=== PATIENT | male | born 1950 | race African-American/Black ===

== ENCOUNTER → 2016-07-05 | Outpatient (CLI) | payer OTHER ==
[~2016-07-05] MED LIST: ACETAMINOPHEN325 M1 PO; AMIODARONE HCL200 MG PO; BACLOFEN10 MG PO; FULL SPECTRUM0.8 MG PO; HEPARIN SO5000 UNITS SC; LISINOPRIL20 MG PO; LOPRESSOR100 M1 PO; METOPROLOL TART25 MG PO; NEPHRO-VITE,1 TABLET PO; NORVASC10 MG PO; ORAZINC220 MG PO; RENAGEL800 MG PO; SANTYL30 GM TP; SENEXON-S TABL1 EACH PO; SILVADENE20 GM TP; VANCOMYCIN HCL1 GM IV; VITAMIN C500 M1 PO; ZESTRIL40 MG PO; ZOLOFT50 MG PO; ZOSYN 2.25 GR2.25 GM IV
== END | disposition home or self-care (01) ==
LOC: AMB 11:30
PROC: 02PYX3Z Removal of Infusion Device from Great Vessel, External Approach (ICD-10-PCS; principal; 2016-07-05)
DX: Z49.01 Encounter for fitting and adjustment of extracorporeal dialysis catheter (principal); N18.6 End stage renal disease; Z99.2 Dependence on renal dialysis

== ENCOUNTER 2016-07-21 19:42 | Inpatient (IN) | payer OTHER ==
[~2016-07-21] VITALS: Ht 182.9 cm; Wt 65.7 kg
[~2016-07-21 19:42] MED LIST changes: +ACETAMINOPHEN325 M1 GT; -ACETAMINOPHEN325 M1 PO; +AMIODARONE HCL200 MG GT; -AMIODARONE HCL200 MG PO; +BACLOFEN10 MG GT; -BACLOFEN10 MG PO; +LOPRESSOR100 M1 GT; -LOPRESSOR100 M1 PO; +NORVASC10 MG GT; -NORVASC10 MG PO; +ORAZINC220 MG GT; -ORAZINC220 MG PO; +RENAGEL800 MG GT; -RENAGEL800 MG PO; +SENEXON-S TABL1 EACH GT; -SENEXON-S TABL1 EACH PO; +VITAMIN C500 M1 GT; -VITAMIN C500 M1 PO; +ZOLOFT50 MG GT; -ZOLOFT50 MG PO
[2016-07-21 20:17] LABS: HEMATOCRIT 36.7 % (38.0-50.0); MCH 23.2 PG (29.0-34.0); MCV 77.4 FL (86-99); MEAN PLAT.VOLUME 9.3 uM^3 (9.0-12.4); PLATELET COUNT 407 K/uL (156-360); RBC DIS.WIDTH-CV 21.7 % (11.8-14.6); RBC DIS.WIDTH-SD 58.1 % (39-53); RED BLOOD COUNT 4.74 M/uL (4.00-5.50); WHITE BLOOD COUNT 11.7 K/uL (4.1-10.2)
[2016-07-21 20:33] LABS: CHLORIDE 96 mEq/L (99-109); POTASSIUM 4.5 mEq/L (3.7-5.4); SODIUM 135 mEq/L (136-147)
[2016-07-21 20:35] LABS: GLUCOSE 108 mg/dL (70-99)
[2016-07-21 20:36] LABS: ANION GAP 13 MEQ/L (2-14)
[2016-07-21 20:39] LABS: GFR ESTIMATE (CALCULATED) 16 mL/min/
[2016-07-21 20:42] LABS: UREA NITROGEN (BUN) 102 mg/dL (9-23)
[2016-07-21 20:58] LABS: BASE EXCESS 2.8 mEq/L (-3 to +3); BICARBONATE 25.7 mEq/L (22-26); CARBOXY HGB 2.5 % (0-5); COMMENTS - BLOOD GASES C+NA; DEVICE ROOM AIR; FI02 21 %; METHEMOGLOBIN 1.2 % (0-1.5); PCO2 33 mm Hg (35-45); PO2 83 mm Hg (80-100); SITE RR; TOTAL RESP RATE 28 resp/min
[2016-07-21 21:02] LABS: TOTAL BILIRUBIN 0.6 mg/dL (0.0-1.0)
[2016-07-21 21:03] LABS: ALKALINE PHOSPHATASE 221 IU/L (3-129)
[2016-07-21 21:06] LABS: DIRECT BILIRUBIN 0.2 mg/dL (0.0-0.3)
[2016-07-21 22:06] LABS: TROP-I INTERPRETATION NEGATIVE; TROPONIN-I 0.12 ng/mL (0.0-0.30)
[2016-07-21] MEDS ORDERED: SODIUM CHLORIDE1 G1 GT (23:09)
[2016-07-21] MEDS ORDERED: OXYCODONE-ACET1 EACH GT (23:11)
[2016-07-21] MEDS ORDERED: NEPHRO-VITE,1 TABLET GT (23:18)
[2016-07-21] MEDS ORDERED: CENTANY30 GM TP (23:22)
[2016-07-22 07:51] LABS: TROP-I INTERPRETATION NEGATIVE; TROPONIN-I 0.19 ng/mL (0.0-0.30)
[2016-07-22 10:52] LABS: ANION GAP 12 MEQ/L (2-14); CHLORIDE 96 MEQ/L (99-109); POTASSIUM 4.9 MEQ/L (3.7-5.4); SAMPLE HEMOLYSIS CHECK 0; SAMPLE ICTERIC CHECK 0; SAMPLE LIPEMIA CHECK 0; SODIUM 132 MEQ/L (136-147); TOTAL BILIRUBIN 0.6 MG/DL (0.0-1.0)
[2016-07-22 10:55] LABS: HEMATOCRIT 36.3 % (38.0-50.0); MCHC 30.9 G/DL (30.0-36.0); MCV 77.7 FL (86-99); MEAN PLAT.VOLUME 10.2 uM^3 (9.0-12.4); PLATELET COUNT 478 K/uL (156-360); RBC DIS.WIDTH-CV 21.1 % (11.8-14.6); RBC DIS.WIDTH-SD 59.1 % (39-53); RED BLOOD COUNT 4.67 M/uL (4.00-5.50); WHITE BLOOD COUNT 12.3 K/uL (4.1-10.2)
[2016-07-22 11:09] LABS: ALKALINE PHOSPHATASE 166 IU/L (3-129); GFR ESTIMATE (CALCULATED) 15 mL/min/; GLUCOSE 101 mg/dL (70-99)
[2016-07-22 11:11] LABS: UREA NITROGEN (BUN) 107 mg/dL (9-23)
[2016-07-22 11:23] LABS: HBSG INDEX 0.21
[2016-07-22 11:24] LABS: AHBS INDEX 2.24; HEPATITIS B SURFACE ANTIBODY Nonreactive
[2016-07-22 11:39] LABS: EOSINOPHIL COUNT 0.1 K/uL (0-0.3); IMMATURE GRANULOCYTE (%) 0.3 % (0.0-0.7); LYMPHOCYTE COUNT 1.8 K/uL (1.0-2.8); MONOCYTE (%) 8.7 % (3-12); MONOCYTE COUNT 1.1 K/uL (0-0.8); NEUTROPHIL (%) 75.3 % (45-76); NEUTROPHIL COUNT 9.3 K/uL (1.8-6.4)
[2016-07-22 12:59] LABS: TROP-I INTERPRETATION NEGATIVE; TROPONIN-I 0.19 ng/mL (0.0-0.30)
[2016-07-22 16:32] VITALS: BP 147/58
[2016-07-22 19:30] VITALS: BP 127/58
[2016-07-22 23:28] VITALS: BP 118/54
[2016-07-23 04:33] VITALS: BP 122/53
[2016-07-23 06:59] LABS: ANION GAP 18 MEQ/L (2-14); CHLORIDE 97 MEQ/L (99-109); POTASSIUM 4.8 MEQ/L (3.7-5.4); SAMPLE HEMOLYSIS CHECK 0; SAMPLE ICTERIC CHECK 0; SAMPLE LIPEMIA CHECK 0; SODIUM 138 MEQ/L (136-147)
[2016-07-23 07:05] LABS: GFR ESTIMATE (CALCULATED) 24 mL/min/; GLUCOSE 78 mg/dL (70-99); UREA NITROGEN (BUN) 56 mg/dL (9-23)
[2016-07-23 07:29] LABS: HEMATOCRIT 39.6 % (38.0-50.0); MCH 24.1 PG (29.0-34.0); MCHC 30.6 G/DL (30.0-36.0); MCV 78.7 FL (86-99); MEAN PLAT.VOLUME 9.9 uM^3 (9.0-12.4); PLATELET COUNT 382 K/uL (156-360); RBC DIS.WIDTH-CV 21.9 % (11.8-14.6); RBC DIS.WIDTH-SD 62.1 % (39-53); RED BLOOD COUNT 5.03 M/uL (4.00-5.50)
[2016-07-23 08:32] VITALS: BP 114/57
[2016-07-23 13:16] LABS: C DIFF TOXIN NEGATIVE (NEGATIVE)
[2016-07-23 13:17] LABS: PROBE CHECK PASS; SPECIMEN PROCESSING CONTROL PASS
[2016-07-23 16:00] VITALS: BP 114/51
[2016-07-23 20:01] VITALS: BP 109/50
[2016-07-23 23:18] VITALS: BP 114/57
[2016-07-24 03:23] VITALS: BP 114/53
[2016-07-24 07:33] VITALS: BP 123/58
[2016-07-24 07:34] LABS: HEMATOCRIT 35.9 % (38.0-50.0); MCH 24.4 PG (29.0-34.0); MCHC 31.8 G/DL (30.0-36.0); MCV 76.9 FL (86-99); RBC DIS.WIDTH-CV 21.1 % (11.8-14.6); RBC DIS.WIDTH-SD 58.8 % (39-53); RED BLOOD COUNT 4.67 M/uL (4.00-5.50); WHITE BLOOD COUNT 10.4 K/uL (4.1-10.2)
[2016-07-24 07:48] LABS: POTASSIUM ND MEQ/L (3.7-5.4)
[2016-07-24 07:49] LABS: ALKALINE PHOSPHATASE 164 IU/L (3-129); ANION GAP 16 MEQ/L (2-14); CHLORIDE 98 MEQ/L (99-109); GFR ESTIMATE (CALCULATED) 17 mL/min/; SAMPLE HEMOLYSIS CHECK 1; SAMPLE ICTERIC CHECK 0; SAMPLE LIPEMIA CHECK 0; SODIUM 137 MEQ/L (136-147); TOTAL BILIRUBIN 0.5 MG/DL (0.0-1.0); UREA NITROGEN (BUN) 84 mg/dL (9-23)
[2016-07-24 07:56] LABS: GLUCOSE 119 mg/dL (70-99)
[2016-07-24 08:51] LABS: EOSINOPHIL (%) 1.7 % (0-5); EOSINOPHIL COUNT 0.2 K/uL (0-0.3); HEMATOLOGY COMMENT 1 SMEAR COMPATIBLE; IMMATURE GRANULOCYTE (%) 0.4 % (0.0-0.7); LYMPHOCYTE COUNT 1.9 K/uL (1.0-2.8); MONOCYTE (%) 11.5 % (3-12); MONOCYTE COUNT 1.2 K/uL (0-0.8); NEUTROPHIL (%) 67.6 % (45-76); PLAT.SUFFICIENCY ADEQUATE; PLATELET COUNT 348 K/uL (156-360); USER ID CCL
[2016-07-24 11:28] LABS: NO-CHARGE AST (GOT) 38 IU/L (15-37)
[2016-07-24 12:28] VITALS: BP 123/54
[2016-07-24 17:27] VITALS: BP 119/51
[2016-07-24 19:29] LABS: METH RESISTANT S AUREUS PCR POSITIVE (NEGATIVE)
[2016-07-24 19:33] LABS: PROBE CHECK PASS
[2016-07-24 22:29] LABS: INTERNAL CONTROL VALID? YES
[2016-07-24 22:53] VITALS: BP 134/60
[2016-07-25 08:00] VITALS: BP 162/72
[2016-07-25 16:30] VITALS: BP 149/75
[2016-07-25 23:02] VITALS: BP 122/58
[2016-07-26 07:12] LABS: HEMATOCRIT 36.2 % (38.0-50.0); MCH 22.8 PG (29.0-34.0); MCHC 29.3 G/DL (30.0-36.0); MEAN PLAT.VOLUME 9.6 uM^3 (9.0-12.4); PLATELET COUNT 330 K/uL (156-360); RBC DIS.WIDTH-CV 20.1 % (11.8-14.6); RBC DIS.WIDTH-SD 57.9 % (39-53); RED BLOOD COUNT 4.64 M/uL (4.00-5.50); WHITE BLOOD COUNT 7.6 K/uL (4.1-10.2)
[2016-07-26 07:18] LABS: EOSINOPHIL (%) 4.2 % (0-5); EOSINOPHIL COUNT 0.3 K/uL (0-0.3); IMMATURE GRANULOCYTE (%) 0.1 % (0.0-0.7); LYMPHOCYTE COUNT 1.6 K/uL (1.0-2.8); MONOCYTE (%) 11.4 % (3-12); MONOCYTE COUNT 0.9 K/uL (0-0.8); NEUTROPHIL (%) 63.8 % (45-76); NEUTROPHIL COUNT 4.9 K/uL (1.8-6.4)
[2016-07-26 08:16] LABS: ALKALINE PHOSPHATASE 145 IU/L (3-129); ANION GAP 15 MEQ/L (2-14); CHLORIDE 92 MEQ/L (99-109); GFR ESTIMATE (CALCULATED) 19 mL/min/; GLUCOSE 116 mg/dL (70-99); POTASSIUM 3.4 MEQ/L (3.7-5.4); SAMPLE HEMOLYSIS CHECK 0; SAMPLE ICTERIC CHECK 0; SAMPLE LIPEMIA CHECK 0; SODIUM 131 MEQ/L (136-147); TOTAL BILIRUBIN 0.4 MG/DL (0.0-1.0); UREA NITROGEN (BUN) 82 mg/dL (9-23)
[2016-07-26] MEDS ORDERED: OXYCODONE-ACET1 EACH GT (09:27)
== END 2016-07-26 13:16 | DRG 871 ==
LOC: EME → EDBD 19:42 → 5EAST 07-22 01:43 → EDOF 07-22 01:43 → 5EAST 07-22 16:25
PROVIDERS: Emergency Medicine; Hospitalist; Internal Medicine Nephrology
PROC: 5A1D60Z (ICD-10-PCS; principal; 2016-07-22)
PROC: 8E0ZXY6 Isolation (ICD-10-PCS; 2016-07-24)
DX: A41.9 Sepsis, unspecified organism (principal); J69.0 Pneumonitis due to inhalation of food and vomit; N18.6 End stage renal disease; G93.41 Metabolic encephalopathy; G82.50 Quadriplegia, unspecified; L89.153 Pressure ulcer of sacral region, stage 3; I12.0 Hypertensive chronic kidney disease with stage 5 chronic kidney disease or end stage renal disease; I69.351 Hemiplegia and hemiparesis following cerebral infarction affecting right dominant side; E46 Unspecified protein-calorie malnutrition; Z68.1 Body mass index [BMI] 19.9 or less, adult; I48.2 Chronic atrial fibrillation; L89.620 Pressure ulcer of left heel, unstageable; B18.2 Chronic viral hepatitis C; L89.612 Pressure ulcer of right heel, stage 2; F32.9 Major depressive disorder, single episode, unspecified; M24.50 Contracture, unspecified joint; Z91.041 Radiographic dye allergy status; Z99.2 Dependence on renal dialysis; Z93.1 Gastrostomy status; I69.320 Aphasia following cerebral infarction; Z74.01 Bed confinement status; Z82.0 Family history of epilepsy and other diseases of the nervous system
CPT/HCPCS: 36600; 70450; 71010; 80048; 80053; 80076; 80202; 81003; 82272; 82565; 82803; 83605; 84484; 84999; 85025; 85027; 86706; 87040; 87077; 87081; 87340; 87493; 87641; 93005; 99281; 99285; J0692; J1644; J2543; J3370; J7050